=== PATIENT | female | born 1980 | race Caucasian/White ===

== ENCOUNTER 2020-05-25 14:30 | Outpatient (CLI) | payer MEDICARE, MEDICAID, SELFPAY | END 2020-05-25 14:31 | disposition home or self-care (01) | LOC: ANHCOVIDVC 14:30 | PROVIDERS: PCP Internal Medicine | DX: Z23 Encounter for immunization (principal) | CPT/HCPCS: 0001A; 91300 ==

== ENCOUNTER 2020-06-15 14:30 | Outpatient (CLI) | payer MEDICARE, MEDICAID, SELFPAY | END 2020-06-15 14:31 | disposition home or self-care (01) | LOC: ANHCOVIDVC 14:30 | PROVIDERS: PCP Internal Medicine | DX: Z23 Encounter for immunization (principal) | CPT/HCPCS: 0002A; 91300 ==

== ENCOUNTER → 2021-12-02 14:09 | Outpatient (CLI) | payer BC, OTHER, SELFPAY ==
--- NOTE | ~2021-12-02 | US_ITS ---
US renal BI 12/02/2021 14:37 Procedure: Realtime transabdominal ultrasound of the kidneys and bladder. Indication: Chronic kidney disease stage II Comparison: Ultrasound dated 04/05/2014 Findings: Renal echotexture is normal bilaterally without hydronephrosis, contour deforming mass or r enal calculus. The right kidney measures 10.3 cm and left kidney measures 9.7 cm. Bladder within nor mal limits. Impression: 1: Unremarkable renal ultrasound. No stones, masses or hydronephrosis. Reviewed, dictated and finalized at location A. Impression: 1: Unremarkable renal ultrasound. No stones, masses or hydronephrosis.
== END ==
PROVIDERS: PCP Internal Medicine
DX: N18.2 Chronic kidney disease, stage 2 (mild) (principal)
CPT/HCPCS: 76775

== ENCOUNTER 2022-02-17 09:51 | Outpatient (RCR) | payer BC, MEDICARE, SELFPAY ==
[2022-02-17 10:31] VITALS: BMI 20.1
--- NOTE | 2022-02-17 16:08 | PM.CNOR ---
Assessment and Plan Assessment and plan (1) Diabetic foot ulcer: Code(s): E11.621 - Type 2 diabetes mellitus with foot ulcer; L97.509 - Non-pressure chronic ulcer of other part of unspecified foot with unspecified severity Status: Acute Assessment and Plan: patient seen and evaluated today. She was started on oral antibiotics. She is to finish out her regimen. Silver gel and gauze to the end of the left 3rd toe. Pressure relief. Follow up next week for re-evaluation. Discussed need for good blood sugar control, daily skin checks and to notify office of any signs of infection. Discussed absolute smoking cessation. (2) Charcot foot due to diabetes mellitus: Code(s): E11.610 - Type 2 diabetes mellitus with diabetic neuropathic arthropathy Status: Acute Assessment and Plan: Medically necessary for custom prosthetic fit and fabrication. Patient condition requires custom fitting due to bone, joint, musculoskeletal deformity. Unable to fit with [id number] brace. Patient condition will be improved with bracing. Condition likely to deteriorate without custom support. Indicated for custom Bilateral full-length inserts with pressure relief (3) Hammertoe, bilateral: Code(s): M20.41 - Other hammer toe(s) (acquired), right foot; M20.42 - Other hammer toe(s) (acquired), left foot Status: Acute Assessment and Plan: Discussed nonoperative and operative treatment options with the patient. Risks and benefits of each as well as alternatives were reviewed. All of the patient's questions were answered. The risks of surgery reviewed including but not limited to: Neurovascular damage, wound complication, infection, blood clot, pulmonary embolus, stroke, myocardial infarction, and anesthetic risks up to and including . Continued pain and possible dysfunction were explained. Specific risks of the procedure including later recurrence of deformity. No guarantees were offered. If hardware used, discussed risk of failure/ breakage and possible need for removal. If complications occur, the patient understands the need for further treatment, possible further surgery. Patient verbalizes understanding and wishes to proceed. PLAN: bilateral 3rd hammertoe, right 2nd mallet toe correction History of Present Illness HPI Consult date: 02/17/22 Requesting physician: Dwight Coburn DO Chief complaint: E11.621, L97.509 non pressure ulcer foot Narrative: 41-year-old woman known previously to the orthopedic service for left Charcot foot changes, deformity and ulcerations. Presents to the [facility] outpatient wound clinic for evaluation of bilateral toes with ulceration. The patient states approximately 1 week ago developed ulcer on the end of the left 3rd toe. She was seen in the emergency room and started on oral antibiotics. Denies fever or chills. Also with history of injury to the right small toe with swelling and redness. Review of Systems Constitutional: Constitutional: Denies fever(s) Eyes: Eyes: Denies blurry vision ENT: Reports Normal hearing present Cardiovascular: Cardiovascular: Denies chest pain and Denies dyspnea Respiratory: Respiratory: Denies dyspnea and Denies wheezing Gastrointestinal: Gastrointestinal: Denies abdominal pain Genitourinary: Genitourinary: Denies urinary urgency Musculoskeletal: Musculoskeletal: Reports as per HPI and Denies numbness Integumentary/Breasts: Skin/Breast: Denies changing lesions and Denies sores Neurologic: Reports Normal hearing present, Denies behavioral changes, Denies confusion, Denies numbness and Denies convulsions Psychiatric: Psychiatric: Denies behavioral changes, Denies confusion and Denies hallucinations Endocrine: Endocrine: Denies heat intolerance Hematologic/Lymphatic: Hematologic/Lymphatic: Denies easy bleeding Allergic/Immunologic: Allergic/Immunologic: Denies wheezing PMFSH Past Medical History Medical Hi
== END 2022-04-15 15:49 | disposition home or self-care (01) ==
LOC: ANHWOC 09:51
PROVIDERS: PCP Internal Medicine; Referring Provider Nurse Practitioner; Visit Provider Orthopaedic Surgery
DX: E11.621 Type 2 diabetes mellitus with foot ulcer (principal); E11.610 Type 2 diabetes mellitus with diabetic neuropathic arthropathy; L97.509 Non-pressure chronic ulcer of other part of unspecified foot with unspecified severity
CPT/HCPCS: 99213; G0463

== ENCOUNTER 2022-03-21 01:30 | Day surgery (SDC) | payer MEDICARE, BC, SELFPAY ==
[2022-03-15 10:23] VITALS: BMI 20.8
--- NOTE | 2022-03-15 10:33 | PC.NURSE ---
Report to the Outpatient Waiting Room, entrance under the green pavilion located off [facility], at time _0730_ on date _03/21/22. Planned Procedure Time: __929. Time changes happen often and if your time is changed the preop area will call you the afternoon before. - You and your visitor will be asked to self-screen and do not enter if you have any COVID symptoms. - Only one visitor is requested with a max of two and NO children visitors are allowed at this time. - The patient visitor may be requested to leave or wait in car when not with patient due to distancing restrictions. - A mask is optional within the hospital. Patients may have clear liquids (water, carbonated beverages, clear teas, apple juice) until 3 hours prior to surgery with a maximum of 20 ounces. - No food from midnight until time of surgery - Infants may have breast milk until 4 hours before surgery, infant formula 6 hours prior to surgery. - Children will be allowed to drink immediately following surgery. If applicable, please bring a bottle or sippy cup to assist with drinking. Juice, water, soda, and popsicles are readily available. For infants on formula, please bring formula the day of surgery. Pacifiers are allowed. Take the following medications with a SIP of water the morning of surgery: ___DULOXETINE, ALPRAZOLAM IF NEEDED, NO CHANGE TO INSULIN PUMP__ Medications to discontinue per physician NONE Date to take last dose Please no make-up, nail mauritian, hairspray, perfume, deodorant, or body powder the day of surgery. No jewelry (including any body piercings) or valuables the day of surgery, leave them at home. Please take a shower or bath the night before, or the morning of, surgery with an antibacterial soap. Wear comfortable, loose fitting clothing. Children are encouraged to wear pajamas. - Jewelry must be removed prior to entering the operating room. Rings and piercings that are not removed may be cut off. - The hospital will not accept responsibility for valuables. - Please leave all valuables, including medications, at home the day of surgery. If you are going home after surgery, a licensed straddle bug driver must drive you home. - NO public transportation without another adult if you receive anesthesia. - We recommend that an adult stay with you for 24 hours following discharge. - We also recommend that you do not drive, make important decision, drink alcoholic beverages, or take any drugs that were not prescribed by your health care provider for at least 24 hours after your discharge time. For Pediatric surgeries, we recommend two adults accompany the child home. Follow any additional instructions given to you from your surgeon. If you or anyone in your household have experienced Covid symptoms in the past week, please notify your surgeon or the nurse liaison at the phone number below for possible testing. Telephone instructions given to _PATIENT_and asked if any additional questions and then verbalized understanding. Patient advised to call surgeon office or pre surgery nurse liaison [phone] if any additional questions.
[2022-03-21] VITALS (7 sets, daily range): BP systolic 95–157; BP diastolic 50–92; PULSE 73–83; RESP 12–18; TEMP 36.3–37.1; O2SAT 14–100
--- NOTE | ~2022-03-21 | XR_ITS ---
EXAMINATION: XR surgery orthopedic DATE: 03/21/2022 10:52 INDICATION: Bilateral foot hammertoe corrections TECHNIQUE: 4 fluoroscopic images of the bilateral forefeet are obtained, 2 on the left and 2 on the r ight during procedure performed by Dr. Sanchez. Radiologist was not present for the imaging or proced ure. The amount of fluoroscopy time used during this procedure was 2.2 minutes. COMPARISON: Bilateral foot radiographs dated 02/23/2022 FINDINGS: Interval bilateral third proximal interphalangeal joint arthrodeses, each with associated axillary di rected implant spanning the joint spaces. The arthrodeses. Near-anatomic alignment. No acute fracture . No interval change in additional chronic postoperative changes in the bilateral feet. 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 IMPRESSION: 1. Expected appearance post bilateral instrumented third proximal interphalangeal joint arthrodesis. See procedure note for further detail. Reviewed, dictated and finalized at location A. ASS TECHNICIAN IMPRESSION: 1. Expected appearance post bilateral instrumented third proximal interphalange al joint arthrodesis. See procedure note for further detail.
--- NOTE | 2022-03-21 07:11 | WPDHPUPDATE1 ---
History and Physical Update Update Date/Time: 03/21/22 07:11 History and Physical has been reviewed, including an updated exam of the patient. There are NO changes in the patient's condition. Risks, benefits, and alternatives have been discussed and questions answered. Patient agrees to proceed with procedure.
--- NOTE | 2022-03-21 07:17 | ECG_ITS ---
Measurements Intervals Meta Rate: 78 P: 69 NH: 151 QRS: 57 QRSD: 93 T: 68 QT: 388 QTc: 443 Interpretive Statements SINUS RHYTHM POSSIBLE LEFT ATRIAL ENLARGEMENT BORDERLINE R WAVE PROGRESSION, ANTERIOR LEADS BORDERLINE ECG NO PREVIOUS ECG AVAILABLE FOR COMPARISON Electronically Signed On 03-21-2022 7:50:17 RESERVATIONS CLERK by Marcelo Harvey D.O.
[2022-03-21] MEDS: ACETAMINOPHEN 500 MG TABLET 1000 MG PO (07:40)
[2022-03-21] MEDS: LACTATED RINGERS 1,000 ML 30 ML IV CONT ×2 (08:05→11:31)
--- NOTE | 2022-03-21 08:10 | P.PNAN_ITS ---
Anes - Initial Pre Proc Eval Procedure: Operation Date: 03/21/22 09:30 Proposed Procedures p Bilateral Third Hammer Toe Correction, Right Second Mallet Toe Correction - Oscar Sanchez MD Date/Time: 03/21/22 08:10 Surgeon: Oscar Sanchez MD Pre Op Diagnosis: bilat hammer toes, ulcers Patient Data Age: 41 Gender: F Height: 1.78 m Weight: 66 kg Allergies Allergy/AdvReac Type Severity Reaction Status Date / Time latex Allergy Unknown Rash Verified 03/21/22 07:46 morphine Allergy Unknown Vomiting Verified 03/21/22 07:46 Penicillins Allergy Unknown Unknown Verified 03/21/22 07:46 Home Medications Medication Instructions Recorded Confirmed Type alprazolam 0.25 mg tablet (Xanax) 0.25 mg PO TID PRN anxiety #20 tabs 06/29/21 03/21/22 Rx duloxetine 60 mg capsule,delayed 60 mg PO DAILY 03/15/22 03/21/22 History release insulin lispro 100 unit/mL subcut 03/15/22 History subcutaneous pen varenicline 1 mg tablet (Chantix) 1 mg PO BID 03/15/22 03/21/22 History Patient hx anesthesia problems: none Family hx anesthesia problems: none Results Review: All pre-operative results and documents have been reviewed as part of the pre- operative evaluation. [facility] Past Medical History Medical History Anxiety Charcot foot due to diabetes mellitus Diabetes Hammertoe, bilateral History of neuropathy Insomnia Mallet toe of right foot Family History Family History Father Skin cancer Mother TIA (transient ischemic attack) Social History Social History Smoking packs per day: 1 Smoking cigarettes per day: 20.0 Years smoked: 22 Smoking pack-years: 22.00 Smoking status: Current every day smoker Tobacco type: cigarettes Additional smoking assessment comments: TAKING CHANTIX TO STOP SMOKING Alcohol intake: current Alcohol use details: 1 DRINK PER MONTH Substance use: current Substance use type: marijuana Other substance usage details: DAILY Living arrangements: alone Anes - Eval Final PreProcedure Day of Procedure 03/21/22 08:10 Patient weight: normal Heart: regular rate and rhythm Lungs: clear to auscultation Airway: Mallampati scale class II Neurological: alert and oriented Last oral intake: >/= 8 hours ASA classification: III Emergent: no Anesthetic plan: proceed Anesthesia type and monitoring: general LMA and standard monitoring Results Review: All pre-operative results and documents have been reviewed as part of the pre- operative evaluation. Informed Consent: The patient's anesthetic plan and its attendant risks and benefits were discusse d with the patient/family/POA. Questions were solicited and answers provided to the satisfaction of the patient/family/POA.
[2022-03-21 08:12] LABS: Glucose Point of Care 215 mg/dl (65-105)
[2022-03-21] MEDS: KETOROLAC 15 MG/ML VIAL (*BKC) IV PUSH (09:25)
[2022-03-21] MEDS: ceFAZolin 2 GM/D5W 50 ML 2 GM/50 ML BAG IVPB (09:43)
[2022-03-21] MEDS: BUPIVACAINE HCL 0.5% PF 30 ML VIAL INFILTRATE (10:31)
[2022-03-21 11:13] LABS: Glucose Point of Care 120 mg/dl (65-105)
--- NOTE | 2022-03-21 11:15 | W.PM.PROC2 ---
Procedure Note - Detailed Date of Procedure 03/21/22 Pre-op Diagnosis bilat hammer toes, ulcers Post-op Diagnosis Same Procedure Performed Bilateral 3rd hammertoe correction with proximal interphalangeal arthrodesis, right 2nd mallet toe correction with flexor tenotomy. Surgeon Oscar Sanchez MD Put[employer] Caulking Supervisor physician assistant psychiatry Anesthesia General Indications 41-year-old with diabetes and peripheral neuropathy with bilateral toe deformity and pre ulcerative condition. Patient recently had ulcer which required antibiotics and wound care. Presents now for reconstruction toes both feet. Description of Procedure Patient identified in the preoperative holding. Informed consent given. Operative extremity marked. Patient received intravenous antibiotics. Patient brought to the operating room where underwent general anesthetic by anesthesia team. Positioned supine on operating room table. Time-out performed confirming the patient, site of the surgery and the plan. both feet prepped and draped usual sterile surgical fashion using ChloraPrep skin solution. We addressed the left foot 1st. Foot ankle exsanguinated with an Esmarch which was secured at the ankle as a tourniquet. Local anesthetic with 0.5% Marcaine plain. Dorsal longitudinal incision made over the 3rd toe proximal interphalangeal joint with a 15 blade knife. Dorsal capsulotomy performed. The proximal interphalangeal joint was released. Distal end of the proximal phalanx and the proximal end of the middle phalanx resected. Fixation achieved with the hammertoe implant. Image intensification confirmed alignment. Wound irrigated and capsule closed with 3-0 Monocryl interrupted suture. Skin repaired with 4-0 nylon interrupted suture. Sterile dressing placed. right foot then addressed. Foot ankle exsanguinated with an Esmarch which was secured at the ankle as a tourniquet. Local anesthetic with 0.5% Marcaine plain. Dorsal longitudinal incision made over the 3rd toe proximal interphalangeal joint with a 15 blade knife. Dorsal capsulotomy performed. The proximal interphalangeal joint was released. Distal end of the proximal phalanx and the proximal end of the middle phalanx resected. Fixation achieved with the hammertoe implant. Image intensification confirmed alignment. Wound irrigated and capsule closed with 3-0 Monocryl interrupted suture. Skin repaired with 4-0 nylon interrupted suture. Second mallet toe addressed. Fresh 15 blade knife used for percutaneous flexor tenotomy. This was done at the middle phalanx level. Good release noted. Wound irrigated, skin closed with 4-0 nylon interrupted suture. Sterile dressing placed. Sterile dressing applied. The patient was then woken from anesthesia, extubated and taken to the recovery room in stable condition. All sponge, needle, instrument counts were correct at the end of the case. Implants Hammertoe implant, Arthrex bilateral 3rd toe Estimated Blood Loss -2.0 Tourniquet Time 30 Drains No Packing No Pathology None sent Complications None Condition Stable Disposition PACU [facility] Billing Surgery - Charge Forward: Surgery Billing ([id number], [id number], [id number])
[2022-03-21] MEDS: fentaNYL CITRATE INJ (*CRX) 100 MCG/2 ML VIAL 25 MCG IV PUSH ×2 (11:40→11:43)
== END 2022-03-21 12:52 | disposition home or self-care (01) ==
PROVIDERS: PCP Internal Medicine; Visit Provider Orthopaedic Surgery
PROC: (CPT 28285; principal; 2022-03-21 09:30)
DX: M20.42 Other hammer toe(s) (acquired), left foot (principal); M20.41 Other hammer toe(s) (acquired), right foot; E11.610 Type 2 diabetes mellitus with diabetic neuropathic arthropathy; F41.9 Anxiety disorder, unspecified; Z79.4 Long term (current) use of insulin; F17.210 Nicotine dependence, cigarettes, uncomplicated
CPT/HCPCS: 28285 ×2; 28232; 82948; 93005; 99199; A9270; J0690; J1165; J1885; J2250; J2405; J2704; J3010; J7120

== ENCOUNTER 2022-03-28 13:26 | Outpatient (CLI) | payer BC, MEDICARE, SELFPAY ==
--- NOTE | ~2022-03-28 | XR_ITS ---
EXAM: XR foot LT min 3V DATE: 03/28/2022 13:39 HISTORY: Follow up . COMPARISON: 03/21/2022 and 02/23/2022. FINDINGS: Decreased mineralization. Screw fixation of the hindfoot and midfoot, with redemonstration of fractured screws. Borderline perihilar hardware lucency at all 3 of the midfoot screws, unchanged . New hardware fixation of the third DIP, with perihilar hardware lucency, which is postsurgical and not related to loosening or infection. Erosion of the tuft of the distal third DIP, unchanged from th e 03/21/2022 examination, new or not well seen in the 02/23/2022 exam. IMPRESSION: Distal third tuft erosion, may represent subacute change of inflammatory arthropathy, inf ection, etc. Redemonstration of mid foot fixation hardware fractures and loosening. Reviewed, dictated and finalized at [facility] ed K. X RAY IMPRESSION: Distal third tuft erosion, may represent subacute change of inflamm atory arthropathy, infection, etc. Redemonstration of mid foot fixation hardwar e fractures and loosening.
--- NOTE | ~2022-03-28 | XR_ITS ---
EXAM: XR foot RT min 3V DATE: 03/28/2022 13:39 HISTORY: Follow up . COMPARISON: 02/23/2022. FINDINGS: Decreased mineralization. Soft tissue anchor along the medial aspect of the first phalanx. Fusion hardware bridging the second and third DIP joints and distal second and third proximal phalan ge osteotomies, without fracture or lucency. Scattered mild degenerative change. IMPRESSION: No radiographic evidence of hardware related complication. Reviewed, dictated and finalized at location K. SAWYER
== END 2022-03-28 13:27 | disposition home or self-care (01) ==
LOC: ANHBWCIMG 13:26
PROVIDERS: PCP Internal Medicine; Visit Provider Orthopaedic Surgery
DX: Z47.89 Encounter for other orthopedic aftercare (principal)
CPT/HCPCS: 73630

== ENCOUNTER 2022-07-04 08:54 | Outpatient (CLI) | payer BC, MEDICARE, SELFPAY ==
--- NOTE | ~2022-07-04 | XR_ITS ---
EXAMINATION: XR foot RT min 3V DATE: 07/04/2022 09:37 INDICATION: Right foot pain. TECHNIQUE: Dorsoplantar, two oblique and lateral views of the right foot were obtained. COMPARISON: 03/28/2022 and 02/23/2022 FINDINGS: Unchanged mild plantar and lateral angulation at the first interphalangeal joint. Fixation staple at the medial side of the first proximal phalanx. Unchanged second proximal interphalangeal arthrodesis with internal fixation device. Interval osteotomy of the head of the third proximal phalanx with atte mpted arthrodesis at the second proximal interphalangeal joint also with an internal fixation device. There is residual lucency along the third proximal interphalangeal joint which may still remain unun ited. No fracture. Polyarticular osteoarthritis, moderate severity at the first metatarsophalangeal a nd fourth and fifth proximal interphalangeal joints and mild at many of the remaining joints at the r ight mid and forefoot. Small subarticular lucency with thin sclerotic margins at the head of the seco nd metatarsal which could represent either a degenerative subchondral cyst or sequela of osteonecrosi s. Soft tissues are unremarkable. IMPRESSION: 1. Mild to moderate polyarticular osteoarthritis in the right mid and forefoot. 2. Postoperative changes in the right forefoot as detailed above. 3. Small subarticular lucency with thin sclerotic margins at the head of the second metatarsal which could represent other degenerative subchondral cyst or osteonecrosis. Reviewed, dictated and finalized at location A. IMPRESSION: 1. Mild to moderate polyarticular osteoarthritis in the right mid and forefoot. 2. Postoperative changes in the right forefoot as detailed above. 3. Small subarticular lucency with thin sclerotic margins at the head of the se cond metatarsal which could represent other degenerative subchondral cyst or os teonecrosis.
--- NOTE | ~2022-07-04 | XR_ITS ---
EXAMINATION: XR foot LT min 3V DATE: 07/04/2022 09:37 INDICATION: Left foot pain with multiple prior surgeries TECHNIQUE: Dorsoplantar, two oblique and lateral views of the left foot were obtained. COMPARISON: 03/28/2022 and 07/22/2017 FINDINGS: Pes planus. Resection of the navicula with attempted midfoot arthrodesis with compression screws exte nding from the base of the first metatarsal, across the medial cuneiform and into the talus with unch anged lucency surrounding the threads suggesting loosening. The intervening first tarsal metatarsal j oint and the articulation between the talus and the medial cuneiform appear to remain ununited. Also unchanged are a pair of additional fractured compression screw spanning the second and fourth tarsal metatarsal joints with apex plantar angulation. The tarsal metatarsal joints also appear to remain un united. There is solid fusion between the calcaneus, cuboid and lateral cuneiform. Attempted arthrodesis at the third proximal interphalangeal joint with osteotomy at the head of the p roximal phalanx and fixation device spanning the joint space. The joint space remains lucent and may remain ununited. There is osteolysis at the head of the third distal phalanx. Region of sclerosis at the distal fibula which could represent a prior bone graft harvest site. Small subarticular lucencies with sclerotic margins at the heads of the first, second and fourth metatarsa l heads suggesting osteonecrosis. Nonuniform joint space narrowing consistent with mild to moderate o steoarthritis in the mid and forefoot most prominent at the first metatarsophalangeal, second proxima l interphalangeal and a few tarsal metatarsal joints. Moderate osteoarthritis at the left ankle and s ubtalar joints. IMPRESSION: 1. Osteolysis at the head of the left third distal phalanx which could relate to osteomyelitis, prior surgery or trauma. 2. Pes planus and postoperative changes at the left mid and hindfoot of chronic partially failed atte mpted midfoot arthrodesis with fracture or loosening of the 3 compression screws as detailed above. 3. Attempted third proximal interphalangeal joint arthrodesis which appears to remain ununited. 4. Subarticular lucencies with sclerotic margins at the heads of the first, second and fourth metatar sals suspicious for osteonecrosis. Alternatively this could represent degenerative subchondral cyst r elated to the mild to moderate polyarticular osteoarthritis in the left mid and forefoot. Reviewed, dictated and finalized at location A. IMPRESSION: 1. Osteolysis at the head of the left third distal phalanx which could relate t o osteomyelitis, prior surgery or trauma. 2. Pes planus and postoperative changes at the left mid and hindfoot of chronic partially failed attempted midfoot arthrodesis with fracture or loosening of t he 3 compression screws as detailed above. 3. Attempted third proximal interphalangeal joint arthrodesis which appears to remain ununited. 4. Subarticular lucencies with sclerotic margins at the heads of the first, sec ond and fourth metatarsals suspicious for osteonecrosis. Alternatively this cou ld represent degenerative subchondral cyst related to the mild to moderate poly articular osteoarthritis in the left mid and forefoot.
== END 2022-07-04 08:55 | disposition home or self-care (01) ==
PROVIDERS: PCP Internal Medicine; Visit Provider Orthopaedic Surgery
DX: M79.671 Pain in right foot (principal); M79.672 Pain in left foot; M19.071 Primary osteoarthritis, right ankle and foot; Z98.890 Other specified postprocedural states; M89.9 Disorder of bone, unspecified; M89.572 Osteolysis, left ankle and foot
CPT/HCPCS: 73630